=== PATIENT | male | born 1950 | race Caucasian/White ===

== ENCOUNTER 2018-06-20 07:27 | Day surgery (SDC) | payer MEDICARE ==
[2018-06-19 10:51] VITALS: BP 173/94
[~2018-06-20] VITALS: Ht 172.7 cm; Wt 73.3 kg
[~2018-06-20 07:27] MED LIST: ALEN70TA6 PO; CALC1CAP8 PO; CHOL200024 PO; IPRA15SP NS; LISI-167 PO; LOVA20TA2 PO; METO-93 PO; RIVA20TA PO; TAMS-11 PO
[2018-06-20] MEDS ORDERED: LACTATED RINGERS 1,000 ML IV SCH (08:08)
[2018-06-20] MEDS ORDERED: FENTANYL PF 250 MCG/5ML ONE (08:32)
[2018-06-20] MEDS ORDERED: MIDAZOLAM 1 MG/ML, 2ML ONE (08:32)
[2018-06-20 09:11] LABS: FIO2 RA %
[2018-06-20] MEDS ORDERED: KETOROLAC 30 MG/1 ML IV PRN (10:00)
[2018-06-20] MEDS ORDERED: OXYcodone 5 MG/5 ML ORAL.SOL UDC PO PRN (10:00)
[2018-06-20] MEDS ORDERED: ALBUTEROL SULFATE 2.5 MG/3 ML NPPB PRN (10:00)
[2018-06-20] MEDS ORDERED: LABETALOL 5MG/ML, 20ML IV PRN (10:00)
[2018-06-20] MEDS ORDERED: PROMETHAZINE 25 MG/ML, 1ML IV PRN (10:00)
[2018-06-20] MEDS ORDERED: hydrALAzine 20 MG/ML, 1ML IV PRN (10:00)
[2018-06-20] MEDS ORDERED: MEPERIDINE/PF 25MG/0.5ML IVPush PRN (10:00)
[2018-06-20] MEDS ORDERED: DIAZEPAM 5 MG/ML, 2ML IVPush PRN (10:00)
[2018-06-20] MEDS ORDERED: FENTANYL PF 100 MCG/2ML IV PRN (10:00)
[2018-06-20] MEDS ORDERED: HYDROmorphone 2 MG/ML, 1ML IVPush PRN (10:00)
[2018-06-20] MEDS ORDERED: ACETAMINOPHEN 325 MG TABLET PO PRN (10:00)
[2018-06-20] MEDS ORDERED: ROCURONIUM 10MG/ML,5ML ONE (14:58)
[2018-06-20] MEDS ORDERED: DEXAMETHASONE 4 MG/ML, 1ML ONE (14:58)
[2018-06-20] MEDS ORDERED: PROPOFOL 10 MG/ML, 20ML ONE (14:58)
[2018-06-20] MEDS ORDERED: NEOSTIGMINE 1 MG/ML, 10ML ONE (14:58)
[2018-06-20] MEDS ORDERED: ONDANSETRON 2MG/ML, 2ML ONE (14:58)
[2018-06-20] MEDS ORDERED: GLYCOPYRROLATE 0.2MG/1ML, 5ML ONE (14:58)
== END 2018-06-20 12:50 | disposition home or self-care (01) ==
LOC: OUT 07:27
PROVIDERS: ATTEND Internal Medicine Critical Care Medicine
DX: C34.02 Malignant neoplasm of left main bronchus (principal); I10 Essential (primary) hypertension; N40.0 Benign prostatic hyperplasia without lower urinary tract symptoms; E78.2 Mixed hyperlipidemia; Z79.01 Long term (current) use of anticoagulants; Z79.899 Other long term (current) drug therapy; Z86.711 Personal history of pulmonary embolism; Z72.89 Other problems related to lifestyle; Z98.890 Other specified postprocedural states
CPT/HCPCS: 31628; 36600; 71045; 82803; 88172; 88173; 88177; 88305; 88341; 88342; 93005; J1100; J2250; J2405; J2704; J2710; J3010; J7120; 31625; 31652; 31653

== ENCOUNTER → 2020-02-24 | Outpatient (CLI) | payer MEDICARE ==
[~2020-02-24] MED LIST changes: -ALEN70TA6 PO; +ALEN70TA77 PO; +CHOL10003 PO; +CYAN50008 PO; +FLUT9.9S NS; +IBAN150T15 PO; +METO50TA82 PO; +MONT10TA6 PO; +OMEP-110 PO; +[UNRECOGNIZED DRUG - OTHER] PO
== END | disposition home or self-care (01) ==
LOC: STAR 08:10
PROVIDERS: ATTEND Internal Medicine Geriatric Medicine
DX: Z01.812 Encounter for preprocedural laboratory examination (principal); Z20.828 Contact with and (suspected) exposure to other viral communicable diseases; K31.89 Other diseases of stomach and duodenum
CPT/HCPCS: 87635; 93005

== ENCOUNTER 2020-03-01 06:32 | Day surgery (SDC) | payer MEDICARE ==
[~2020-03-01] VITALS: Ht 172.7 cm; Wt 64.6 kg
[2020-03-01] MEDS ORDERED: PERCOCET PO (07:18)
[2020-03-01 07:20] VITALS: BP 153/83
[2020-03-01] MEDS ORDERED: LACTATED RINGERS 1,000 ML IV SCH (07:30)
[2020-03-01] MEDS ORDERED: CHLORHEXIDINE 15 ML UDC MM ONE (07:30)
[2020-03-01 07:41] LABS: BASOPHILS % (AUTO) 1 % (0-1); EOSINOPHILS % (AUTO) 1 % (1-7); LYMPHOCYTES % (AUTO) 11 % (22-44); MEAN CORPUSCULAR HEMOGLOBIN 24.9 pg (27.5-34.5); MEAN CORPUSCULAR HGB CONC 32.1 g/dL (33.2-36.2); MEAN PLATELET VOLUME 6.7 fL (7.4-10.4); MONOCYTES % (AUTO) 11 % (2-9); NEUTROPHILS % (AUTO) 77 % (42-75); PLATELET COUNT 472 x10^3/uL (130-400); RED BLOOD COUNT 4.29 x10^6/uL (4.38-5.82); RED CELL DISTRIBUTION WIDTH 18.2 % (9.4-14.8)
[2020-03-01 07:52] LABS: MD NO
[2020-03-01] MEDS ORDERED: FENTANYL PF 100 MCG/2ML ONE (08:31)
[2020-03-01] MEDS ORDERED: ONDANSETRON 2MG/ML, 2ML ONE (08:32)
[2020-03-01] MEDS ORDERED: PROPOFOL 10 MG/ML, 50ML ONE (08:32)
[2020-03-01] MEDS ORDERED: PHENYLEPHRINE 10 MG/ML ONE (08:32)
[2020-03-01] MEDS ORDERED: EPHEDRINE 50 MG/ML, 1ML IVPush PRN (09:00)
[2020-03-01] MEDS ORDERED: METOCLOPRAMIDE 5 MG/ML, 2ML IVPush PRN (09:00)
[2020-03-01] MEDS ORDERED: METOPROLOL 1 MG/ML, 5ML IV PRN (09:00)
[2020-03-01] MEDS ORDERED: HYDROmorphone 1 MG/ML, 1ML INJ IVPush PRN (09:00)
[2020-03-01] MEDS ORDERED: ONDANSETRON 2MG/ML, 2ML IVPush PRN (09:00)
[2020-03-01] MEDS ORDERED: PROMETHAZINE 12.5 MG SUPP PR PRN (09:00)
[2020-03-01] MEDS ORDERED: HALOPERIDOL 5 MG/ML IV PRN (09:00)
[2020-03-01] MEDS ORDERED: DIPHENHYDRAMINE 50 MG/ML, 1ML IVPush PRN (09:00)
[2020-03-01] MEDS ORDERED: OXYcodone 5 MG/5 ML ORAL.SOL UDC PO PRN (09:00)
[2020-03-01] MEDS ORDERED: ACETAMINOPHEN 325 MG TABLET PO PRN (09:00)
[2020-03-01] MEDS ORDERED: hydrALAzine 20 MG/ML, 1ML IV PRN (09:00)
[2020-03-01] MEDS ORDERED: LABETALOL 5MG/ML, 20ML IV PRN (09:00)
[2020-03-01] MEDS ORDERED: FENTANYL PF 100 MCG/2ML IV PRN (09:00)
== END 2020-03-01 11:30 | disposition home or self-care (01) ==
LOC: OUT 06:32
PROVIDERS: ATTEND Internal Medicine Geriatric Medicine
DX: K31.89 Other diseases of stomach and duodenum (principal); K29.50 Unspecified chronic gastritis without bleeding; D50.9 Iron deficiency anemia, unspecified; I10 Essential (primary) hypertension; E78.5 Hyperlipidemia, unspecified; I25.10 Atherosclerotic heart disease of native coronary artery without angina pectoris; N40.0 Benign prostatic hyperplasia without lower urinary tract symptoms; Z88.8 Allergy status to other drugs, medicaments and biological substances; Z79.899 Other long term (current) drug therapy; Z72.89 Other problems related to lifestyle; Z85.118 Personal history of other malignant neoplasm of bronchus and lung; Z86.711 Personal history of pulmonary embolism; Z79.01 Long term (current) use of anticoagulants; Z98.890 Other specified postprocedural states; Z82.49 Family history of ischemic heart disease and other diseases of the circulatory system
CPT/HCPCS: 36415; 43239; 43242; 85025; 88172; 88173; 88305; J2370; J2405; J2704; J3010; J7120